=== PATIENT | female | born 2000 | race Caucasian/White ===

== ENCOUNTER 2019-01-14 01:10 | Observation (INO) | payer OTHER ==
[~2019-01-14] VITALS: Ht 154.9 cm; Wt 64.9 kg
[2019-01-14 02:19] VITALS: BP 111/69
[2019-01-14] MEDS ORDERED: PREN-380 PO (02:35)
== END 2019-01-14 02:50 | disposition home or self-care (01) ==
LOC: MLD 01:10
PROVIDERS: ADMIT Obstetrics & Gynecology; ATTEND Obstetrics & Gynecology
DX: O26.892 Other specified pregnancy related conditions, second trimester (principal); N89.8 Other specified noninflammatory disorders of vagina; Z3A.26 26 weeks gestation of pregnancy
CPT/HCPCS: G0378